=== PATIENT | male | born 1940 ===

== ENCOUNTER 2016-12-12 11:04 | Emergency (ER) | payer MEDICARE, OTHER ==
[2016-12-12] MEDS ORDERED: Oxymetazoline 0.05% Nasal Spray 15 ML Bottle ONE (12:00)
--- NOTE | 2016-12-12 12:27 | EDM.PDOC ---
ED HPI GENERAL MEDICAL PROBLEM - General Chief Complaint: General Stated Complaint: NOSE BLEED ON BLOOD THINNER Time Seen by Provider: 12/12/16 12:05 Source of Information: Reports: Patient History Limitations: Reports: No Limitations - History of Present Illness INITIAL COMMENTS - FREE TEXT/NARRATIVE: According to patient he was brushing his teeth around 8 Am today, when he started having his Parkinson's tremors and his tooth brush went into his left nostril and he continued to brush for few seconds before he could stop. He started to bleeding from the left nostril and tried some nasal pressure and the bleeding slowed down. Patient then decided to go home to [facility], was driving down and was [place] of [place] town [place] towards [facility], and bleeding suddenly got worse.Could not stop with nasal pressure and as he is also on Xoraltto he did drive into the [facility] Emergency room. Pt still continues to bleed from his left nostril. No weakness. No nausea or vomiting. Has been coughing secondary to choking on the blood in the pharynx. No other complaints. - Related Data Allergies Allergy/AdvReac Type Severity Reaction Status Date / Time amoxicillin [From Augmentin] Allergy Respiratory Verified 12/12/16 12:15 Distress clavulanic acid Allergy Respiratory Verified 12/12/16 12:15 [From Augmentin] Distress Home Meds: Home Meds Carbidopa/Levodopa/Entacapone [Tdxzgjivw-Nuwpthll-Tfor 200 mg] 200 mg PO 5XDAY 12/12/16 [History] Cholecalciferol (Vitamin D3) [Vitamin D3] 5,000 mg PO ASDIRECTED 12/12/16 [ History] Cyanocobalamin (Vitamin B-12) [Vitamin B-12] 2,500 mg PO ASDIRECTED 12/12/16 [ History] Flecainide [Tambocor] 100 mg PO BID 12/12/16 [History] Metoprolol Succinate [Toprol Xl] 50 mg PO BID 12/12/16 [History] Omeprazole 20 mg PO DAILY 12/12/16 [History] Rivaroxaban [Xarelto] 20 mg PO DAILY 12/12/16 [History] ED ROS GENERAL - Review of Systems Review Of Systems: See Below Constitutional: Denies: Fever, Chills, Malaise, Night Sweats HEENT: Reports: Nosebleed, Nose Pain. Denies: Ear Pain, Throat Pain, Throat Swelling Respiratory: Reports: Cough. Denies: Shortness of Breath, Sputum Cardiovascular: Denies: Chest Pain, Lightheadedness GI/Abdominal: Denies: Abdominal Pain, Nausea, Vomiting : Denies: Flank Pain, Frequency Musculoskeletal: Denies: Shoulder Pain, Joint Pain, Joint Swelling Skin: Denies: Bruising, Rash Neurological: Reports: Tremors (from parkinson's disease). Denies: Numbness, Tingling Psychiatric: Denies: Agitation, Anxiety Hematologic/Lymphatic: Denies: Anemia, Easy Bleeding, Easy Bruising ED EXAM, GENERAL - Physical Exam Exam: See Below Exam Limited By: No Limitations General Appearance: Alert, WD/WN, No Apparent Distress Eye Exam: Bilateral Eye: EOMI, PERRL Ears: Normal External Exam, Normal Canal, Hearing Grossly Normal, Normal TMs Ear Exam: Bilateral Ear: Auricle Normal, Canal Normal, TM normal Nose: Other (Ther is [place] blood draining from the left nostril.) Head: Atraumatic, Normocephalic Neck: Normal Inspection, Supple, Non-Tender, Full Range of Motion Respiratory/Chest: No Respiratory Distress, Lungs Clear, Normal Breath Sounds, No Accessory Muscle Use, Chest Non-Tender Cardiovascular: Normal Peripheral Pulses, Regular Rate, Rhythm, No Edema, No Gallop, No JVD, No Murmur, No Rub GI/Abdominal: Normal Bowel Sounds, Soft, Non-Tender, No Organomegaly, No Distention, No Abnormal Bruit, No Mass Extremities: Normal Inspection, Normal Range of Motion, Non-Tender, Normal Capillary Refill, No Pedal Edema Neurological: Alert, Oriented, Normal Cognition, Other (intentional tremors of hands seen) Course - Vital Signs Text/Narrative:: Initially nasal pressure was applied for about good 10 minutes by the nursing staff. The bleeding continue when nasal pressure was released. Nasal pressure was applied and I did make his swallow some water and then inspected the posterior pharynx, the bleeding has stopped. So this was anterior nasal bleed. At this point 2 sprays of afrin was sprayed into the nostril and the bleeding continued. Hence I did place Rhino-rocket to stop the anterior bleed. the bleeding immediately stopped. I did do CBC hemoglobin is 13, PT is normal and PTT elevated. The cause of the bleed is him accidentally brushing his nasal mucosa and the xoreltto might have contributed to not aborting the bleed. At this time, I have advised not to pull the Rhino-rocket. He might feel discomfort in the nose because of the rhino rocket in the left nostril. Avoid sudden coughing or sneezing. Followup with his primary care physician tomorrow to have the rhino rocket removed. Advised to hold his xoreltto today and consult his physician before starting it. In future if he does get nasal bleed, advised nasal pressure for 90-120 secs and apply 2 sprays of afrin in each nostril, if bleeding continues advised to go to his Physician office or emergency room. Last Recorded V/S: Last Vital Signs Temp 98 F 12/12/16 11:05 Pulse 85 12/12/16 11:05 Resp 16 12/12/16 11:05 BP 161/96 H 12/12/16 11:05 Pulse Ox 100 12/12/16 11:05 - Orders/Labs/Meds Labs: Laboratory Tests 12/12/16 12/12/16 Range/Units 12:30 12:30 WBC 7.1 (4.0-11.0) K/uL RBC 4.09 L (4.50-6.50) M/uL Hgb 13.0 (13.0-18.0) g/dL Hct 37.7 L (40.0-54.0) % MCV 92 (76-96) fL MCH 31.8 (27.0-32.0) pg MCHC 34.5 (31.0-35.0) g/dL RDW 12.5 (11.0-16.0) % Plt Count 147 L (150-400) K/uL MPV 8.9 (6.0-10.0) fL Neut % (Auto) 78.0 H (45.0-70.0) % Lymph % (Auto) 13.2 L (20.0-40.0) % [place] % (Auto) 6.7 (3.0-10.0) % Eos % (Auto) 1.8 (1.0-5.0) % Baso % (Auto) 0.3 (0.0-0.5) % Neut # (Auto) 5.55 (2.00-7.50) K/uL Lymph # (Auto) 0.94 L (1.50-4.00) K/uL [place] # (Auto) 0.48 (0.20-0.80) K/uL Eos # (Auto) 0.13 (0.04-0.40) K/uL Baso # (Auto) 0.02 (0.02-0.10) K/uL PT 12.0 H (9.0-11.5) sec INR 1.2 (1.0-3.5) APTT 64.9 H (27.0-35.0) SECONDS Departure - Departure Time of Disposition: 13:20 Disposition: Home, Self-Care 01 Condition: fair Clinical Impression: Anterior epistaxis - Discharge Information Instructions: Oxymetazoline nasal spray, Nosebleed, [id number] Referrals: PCP,None [Primary Care Provider] - Forms: ED Department Discharge Additional Instructions: Initially nasal pressure was applied for about good 10 minutes by the nursing staff. The bleeding continue when nasal pressure was released. Nasal pressure was applied and I did make his swallow some water and then inspected the posterior pharynx, the bleeding has stopped. So this was anterior nasal bleed. At this point 2 sprays of afrin was sprayed into the nostril and the bleeding continued. Hence I did place Rhino-rocket to stop the anterior bleed. the bleeding immediately stopped. I did do CBC hemoglobin is 13 , PT normal and PTT elevated. The cause of the bleed is him accidentally brushing his nasal mucosa and the xoreltto might have contributed to not aborting the bleed. At this time, I have advised not to pull the Rhino-rocket. He might feel discomfort in the nose because of the rhino rocket in the left nostril. Avoid sudden coughing or sneezing. Followup with his primary care physician tomorrow to have the rhino rocket removed. Advised to hold his xoreltto today and consult his physician before starting it. In future if he does get nasal bleed, advised nasal pressure for 90-120 secs and apply 2 sprays of afrin in each nostril, if bleeding continues advised to go to his Physician office or emergency room. Care Plan Goals: Leave packing in and see your primary health care provider tomorrow to have packing removed. You have a Anterior Nasal Bleed. You can have afrin on hand if this happens again and it may work to stop the bleed. - Problem List & Annotations (1) Anterior epistaxis SNOMED Code(s): 590174897 Code(s): R04.0 - EPISTAXIS Status: Acute Current Visit: Yes - Problem List Review Problem List Initiated/Reviewed/Updated: Yes - Assessment/Plan Assessment:: Left anterior epistaxis Plan: Initially nasal pressure was applied for about good 10 minutes by the nursing staff. The bleeding continue when nasal pressure was released. Nasal pressure was applied and I did make his swallow some water and then inspected the posterior pharynx, the bleeding has stopped. So this was anterior nasal bleed. At this point 2 sprays of afrin was sprayed into the nostril and the bleeding continued. Hence I did place Rhino-rocket to stop the anterior bleed. the bleeding immediately stopped. I did do CBC hemoglobin is 13 , PT nroaml and PTT elevated. The cause of the bleed is him accidentally brushing his nasal mucosa and the xoreltto might have contributed to not aborting the bleed. At this time, I have advised not to pull the Rhino-rocket. He might feel discomfort in the nose because of the rhino rocket in the left nostril. Avoid sudden coughing or sneezing. Followup with his primary care physician tomorrow to have the rhino rocket removed. Advised to hold his xoreltto today and consult his physician before starting it. In future if he does get nasal bleed, advised nasal pressure for 90-120 secs and apply 2 sprays of afrin in each nostril, if bleeding continues advised to go to his Physician office or emergency room.
[2016-12-12 13:54] VITALS: BP 134/83
== END 2016-12-12 13:25 | disposition home or self-care (01) ==
LOC: EDBD 12:04 → LB.ED 12:04
DX: R04.0 Epistaxis (principal); Z88.1 Allergy status to other antibiotic agents; Z88.8 Allergy status to other drugs, medicaments and biological substances; Z79.899 Other long term (current) drug therapy
CPT/HCPCS: 30901; 36415; 85025; 85610; 85730; 99282; A9270